=== PATIENT | male | born 1950 | race African-American/Black ===

== ENCOUNTER 2016-08-14 11:43 | Emergency (ER) | payer MEDICARE ==
[~2016-08-14] VITALS: Ht 175.3 cm; Wt 90.0 kg
[2016-08-14] MEDS ORDERED: SODIUM CHLORIDE 0.9% 250 ML IV ONE (12:12)
[2016-08-14 12:38] LABS: BASOPHILS % 0.5 % (0.0-2.0); EOSINOPHILS % 0.9 % (0.0-5.0); HEMOGLOBIN. 15.5 g/dL (14.0-18.0); LYMPHOCYTES % 11.4 % (20.0-50.0); MEAN CORPUSCULAR HEMOGLOBIN 30.8 pg (28.0-32.0); MEAN CORPUSCULAR HGB CONC 33.7 g/dL (31.0-37.0); MEAN CORPUSCULAR VOLUME 91.3 fL (80.0-94.0); MEAN PLATELET VOLUME 7.9 fl (7.4-10.4); NEUTROPHILS % 81.2 % (40.0-76.0); PLATELET 231 x1000/uL (130-400); RED BLOOD CELL COUNT 5.04 mill/uL (4.7-6.1); RED CELL DISTRIBUTION WIDTH 15.5 % (11.6-14.6); WHITE BLOOD COUNT 11.7 x1000/uL (4.5-11.0)
[2016-08-14 12:41] LABS: CHLORIDE 109 mEq/L (98-107); INDEX HEMOLYSI 4 (1-3); INDEX ICTERIC 1 (1-4); INDEX LIPEMIC 1 (1-3)
[2016-08-14 12:45] LABS: INR 1.3; PARTIAL THROMBOPLASTIN TIME 32.9 sec (24.0-34.0); PROTHROMBIN TIME 13.7 sec
[2016-08-14 12:52] LABS: ALANINE AMINOTRANSFERASE 13 IU/L (13-61); ALBUMIN 3.1 g/dL (3.4-5.0); ANION GAP 14; CALCIUM 9.5 mg/dL (8.5-10.1); CARBON DIOXIDE 23 mEq/L (21-32); CREATINE KINASE MB FRACTION < 0.5 ng/mL (0.5-3.6); MAGNESIUM 2.1 mg/dL (1.8-2.4); NT PRO B-TYPE NATRIURETIC PEP 191 pg/mL (5-125); TROPONIN I < 0.02 ng/mL (0.00-0.04); UREA NITROGEN BLOOD 15 mg/dL (7-21); eGFR > 60 mL/min (>60)
[2016-08-14] MEDS ORDERED: TRAMADOL 50MG TABLET PO ONE (13:30)
[2016-08-14 16:34] VITALS: BP 123/93
== END 2016-08-14 16:46 ==
LOC: ER 11:44
DX: I95.9 Hypotension, unspecified (principal); M25.512 Pain in left shoulder; M19.90 Unspecified osteoarthritis, unspecified site; E11.9 Type 2 diabetes mellitus without complications; I10 Essential (primary) hypertension; Z88.8 Allergy status to other drugs, medicaments and biological substances; Z86.73 Personal history of transient ischemic attack (TIA), and cerebral infarction without residual deficits
CPT/HCPCS: 36415; 71010; 73030; 80053; 82553; 83735; 83880; 84484; 85025; 85610; 85730; 93005; 96360; 99285; J7050